=== PATIENT | female | born 1955 | race Caucasian/White ===

== ENCOUNTER → 2016-12-12 | Outpatient (CLI) | payer OTHER ==
[~2016-12-12] MED LIST: ASTN; ATOR-24 PO; FLUT0.15; KETO10TA PO; NAPR220T40 PO; OXYC-57 PO; PRLSR20 PO
[2016-12-12 13:17] LABS: BASO % 0.5 %; BASO ABS # 0.06 K/uL (0-0.2); COMPLETE YES; EOS % 1.6 %; HEMATOCRIT 42.8 % (37-47); IG% 0.3 %; LYMPH % 38.5 %; MEAN CELL VOLUME 88.1 fL (80-100); MEAN CORPUSCULAR HEMOGLOBIN 30.5 pg (25-34); MEAN CORPUSCULAR HGB CONC 34.6 g/dl (32-36); MEAN PLATELET VOLUME 11.3 fL (7.4-10.4); MONO % 6.5 %; NEUT % 52.6 %; PLATELET COUNT 269 K/uL (130-400); RED BLOOD COUNT 4.86 M/uL (4.2-5.4); WHITE BLOOD COUNT 11.17 K/uL (4.8-10.8)
[2016-12-12 15:11] LABS: BLOOD UREA NITROGEN 13 mg/dl (7-18); BUN/CREATININE RATIO 20.1 (10-20); CALCIUM 9.6 mg/dl (8.5-10.1); CARBON DIOXIDE 29 mmol/L (21-32); CHLORIDE 108 mmol/L (98-107); CREATININE 0.65 mg/dl (0.60-1.20); GLUCOSE 85 mg/dl (70-99); SODIUM 141 mmol/L (136-145)
== END | disposition home or self-care (01) ==
LOC: C.LAB 11:53
PROVIDERS: ATTEND Orthopaedic Surgery
DX: M75.02 Adhesive capsulitis of left shoulder (principal); Z01.812 Encounter for preprocedural laboratory examination; Z01.810 Encounter for preprocedural cardiovascular examination

== ENCOUNTER → 2017-01-02 | Day surgery (SDC) | payer OTHER ==
[2016-12-11 10:31] VITALS: Ht 152.4 cm; Wt 77.3 kg
[~2017-01-02] VITALS: Ht 152.4 cm; Wt 77.3 kg
[~2017-01-02] MED LIST changes: +ATROPINE SULFATE 0.1 MG/ML 5ML SYR IV PRN; +BUPIVACAINE/EPINEPHRINE 0.25% 1:200,000 30 ML VIAL ONE; +CEFAZOLIN 2000 MG/60 ML D5W IV SCH; +DEXAMETHASONE SOD INJ 4 MG/ML VIAL ONE; +EpHEDrine SULFATE INJ 50 MG/ML AMP IV PRN; +EpINEphrine INJ 1MG/ML AMP 1 MG/ML AMP ONE; +FENTANYL CITRATE INJ 50 MCG/1 ML 2 ML VIAL IV PRN; +FENTANYL CITRATE INJ 50 MCG/1 ML 2 ML VIAL ONE; +LACTATED RINGER'S 1000ML 1,000 ML IV SCH; +LIDOCAINE HCL 1% MPF 2 ML VIAL ONE; +LIDOCAINE HCL 2% 2 ML VIAL (20MG/ML) ONE; +METHYLPREDNISOLONE ACETATE 80 MG/ML VIAL ONE; +MIDAZOLAM HCL 1 MG/ML 2ML VIAL ONE; +ONDANSETRON INJ 2 MG/ML 2 ML VIAL IV PRN; +ONDANSETRON INJ 2 MG/ML 2 ML VIAL ONE; +OXYCODONE/ACETAMINOPHEN 5-325 TAB PO PRN; +PROPOFOL IV EMULSION 10 MG/ML 20 ML VIAL IV ONE; +ROPIVACAINE 0.5% 5 MG/ML 30 ML VIAL ONE; +SODIUM CHLORIDE 0.9% 1000ML 1,000 ML IV SCH
--- NOTE | 2017-01-02 08:16 | History & Physical Bridge - [place] ---
H&P Re-Evaluation Bridge Note: I have examined the patient, reviewed the History & Physical and in the interval since the performance of the History & Physical I have noted the following changes of clinical significance: No changes noted
--- NOTE | 2017-01-02 12:10 | Discharge Instructions-SurgCtr ---
Discharge Instructions Date of Service Jan 02, 2017. Visit Reason for Visit: Left Shoulder Adhesive Capsulitis, Pain Discharge Discharge Diagnosis / Problem: SAME ABOVE Discharge Goals Goal(s): Decrease discomfort, Improve function Medications Stopped Medications Name(s): Beth last dose aproxx 10 days ago Restart Stopped Medication(s): MAY RESTART WHEN FINISHED WITH THE TORADOL Activity Recommendations Activity Limitations: resume your previous activity Lifting Limitations: gradually increase as tolerated Exercise/Sports Limitations: gradually increase as tolerated Shower/Bathe: tomorrow Anesthesia . Post Anesthesia Instructions: If you have had General Anesthesia or IV Sedation: * Do not drive today. * Resume driving when surgeon permits. * Do not make important decisions or sign legal documents today. * Call surgeon for: 1. Temperature elevations greater than 101 degrees F. 2. Uncontrollable pain. 3. Excessive bleeding. 4. Persistent nausea and vomiting. 5. Medication intolerance (nausea, vomiting or rash). * For nausea and vomiting use only clear liquids such as: tea, soda, bouillon until nausea subsides, then gradually increase diet as tolerated. * If you have any concerns or questions, call your surgeon's office. If physician is unavailable and it is an emergency, call 911 or go to the nearest emergency room. . Instructions / Follow-Up Instructions / Follow-Up MEDICATIONS: * Resume previous medications unless instructed otherwise by your surgeon. * Always take pain medication on a full stomach or with food to avoid upset stomach. * Do not drink alcohol or drive while taking narcotics. * Ibuprofen or Tylenol may be taken if narcotic not needed. SPECIAL CARE INSTRUCTIONS: __ None _X_ Keep extremity elevated and iced x 48 hours; apply ice 20-30 minutes 8-10 times/day. May remove at night. _X_ Sling (REMOVE AFTER 24 HOURS) __24 hrs/day __ Remove at night __ Shoulder Immobilizer __ 24 hrs/day __ Remove at night _X_ Dressing __ Maintain until seen in office, may shower with plastic over site _X_ Remove dressings in 24-48 hours and then may shower _X_ Cover incisions with band-aids after showering __ Do not remove steri-strips Call physician if chills or temperature rises above 102 degrees or pain unrelieved by prescribed pain medications at . . Diet Recommendations Home Diet: no limitations Procedures Procedures Performed: Left Shoulder Arthroscopic Capsular Release, Extensive Debridement, Biceps Tenotomy Pending Studies Studies pending at discharge: no Work Instructions Return To Work: 3 days (OR WHEN PAIN IS CONTROLLED ) Medical Emergencies . Who to Call and When: Medical Emergencies: If at any time you feel your situation is an emergency, please call 911 immediately. . Non-Emergent Contact Non-Emergency issues call your: Primary Care Provider Call Non-Emergent contact if: you have a fever, temperature is above 101.5 . . "Provider Documentation" section prepared by Tavo Anne. .
--- NOTE | 2017-01-02 12:31 | OPERATIVE REPORT ---
DATE OF OPERATION: 01/02/2017 PREOPERATIVE DIAGNOSIS: Adhesive capsulitis of the left shoulder with a paralabral cyst. POSTOPERATIVE DIAGNOSIS: Adhesive capsulitis of the left shoulder with a paralabral cyst and biceps tendinopathy. PROCEDURE: Diagnostic left shoulder arthroscopy with extensive debridement, lysis of adhesions, biceps tenotomy and manipulation under anesthesia. SURGEON: Dave Manning DO. SUPERVISOR NEWSPAPER DELIVERIES: Evin Anne PA-C, whose assistance was necessary for positioning the arm and helping with instrumentation. ANESTHESIA: General with a left interscalene nerve block. COMPLICATIONS: None. CONDITION: Stable to PACU. INDICATIONS: Mirna is a pleasant 61-year-old female who presented to my office with increasing left shoulder pain and tightness. MRI did show a large paralabral cyst, but she did not have any weakness with external rotation. After failing conservative treatment, she elected to undergo a capsular release with decompression of the cyst. On 01/02/2017, she arrived at [facility] for the above procedure. She was seen in the preoperative holding area and the operative extremity was identified and signed. She was given a preoperative antibiotic and a left interscalene nerve block. She was taken back to the operating room, laid on the table in supine position and put under general anesthesia. She was then put into the beach chair position. The left shoulder was prepped and draped in sterile fashion. Time-out was done and the patient and operative extremity was properly identified. On preoperative physical examination, she had about 70 degrees of abduction and 30 degrees of external rotation. A gentle manipulation was done under anesthesia to facilitate insertion of the arthroscope. The scope was then placed in the posterior portal. Diagnostic arthroscopy showed some grade 2 and 3 chondral changes to the humeral head. The glenoid cartilage was intact. There was significant fraying and tearing of the superior and anterior labrum. There was a lot of redness and inflammation of the middle and inferior glenohumeral ligaments. The rotator interval did not look too bad. The biceps tendon was subluxated medially with some fraying. There was a little fraying of the undersurface of the rotator cuff, but no evidence of full thickness tears. An anterior portal was made. A shaver was used to start an extensive debridement. The labrum was debrided back. The undersurface of the rotator cuff was debrided as well. An ablator was then used to do a lysis of adhesions, the rotator interval was completely opened up from the biceps florian mechanism back to the undersurface of the coracoid. The middle and anterior inferior glenohumeral ligaments were then completely released. Care was taken not to disrupt the subscapularis or the axillary nerve. A shaver was used to debride back loose soft tissues. This was all debrided back to stable margins. The scope was then placed in the anterior portal. A shaver was used to detach the superior capsule. A blunt probe was then used to decompress the cyst at the spinoglenoid notch. I did not feel any doing a further dissection in that area. Final diagnostic arthroscopy showed no additional pathology. A spinal needle was placed in the joint. Arthroscopic instruments removed. The manipulation was done under anesthesia and I was able to get full range of motion of the shoulder. The shoulder was then injected with 80 mg of Depo-Medrol and 5 mL of Marcaine. The portal sites were closed with 3-0 nylon. She was then placed in a soft dressing and regular arm sling. She was then extubated, transferred to a [facility] and taken to the postanesthesia care unit in stable condition. She tolerated the procedure well. I attest to the content of the Intraoperative Record and any orders documented therein. Any exception s are noted below.
--- NOTE | 2017-01-02 12:52 | Anesthesia Progress Nt - [facility] ---
Anesthesia Post Op Note Date & Time Jan 02, 2017 at 12:51 Vital Signs Pain Intensity: 0 Vital Signs Past 12 Hours Date Time Temp Pulse Resp B/P (MAP) Pulse Ox O2 Delivery O2 Flow Rate FiO2 01/02/17 12:13 36.4 93 20 161/77 96 Mask 6 01/02/17 11:14 63 01/02/17 11:14 62 13 97 01/02/17 11:11 157/68 01/02/17 11:09 64 29 99 01/02/17 11:09 62 01/02/17 11:06 141/84 01/02/17 11:04 63 25 99 01/02/17 11:04 62 01/02/17 11:01 150/70 01/02/17 10:59 59 20 98 01/02/17 10:59 59 01/02/17 10:56 151/87 01/02/17 10:54 65 01/02/17 10:54 64 20 99 01/02/17 10:51 157/76 01/02/17 10:49 57 01/02/17 10:49 58 20 98 01/02/17 10:46 124/65 01/02/17 10:44 64 01/02/17 10:44 63 18 98 01/02/17 10:41 154/72 01/02/17 10:39 53 19 158/75 99 01/02/17 10:39 54 01/02/17 10:34 58 0 01/02/17 10:29 55 01/02/17 10:29 55 0 95 01/02/17 08:25 37.0 62 18 178/89 (118) 95 Room Air Notes Mental Status: alert / awake / arousable, participated in evaluation Pt Amnestic to Procedure: Yes Nausea / Vomiting: adequately controlled Pain: adequately controlled Airway Patency, RR, SpO2: stable & adequate BP & HR: stable & adequate Hydration State: stable & adequate Anesthetic Complications: no major complications apparent
[2017-01-02 13:08] VITALS: TEMP 36.8
[2017-01-02 13:47] VITALS: BP 146/79; PULSE 80; O2SAT 95
--- NOTE | 2017-01-02 15:24 | [facility] Post Operative Brief Note ---
Immediate Operative Summary Operative Date Jan 02, 2017. Pre-Operative Diagnosis Left Shoulder Adhesive Capsulitis Post-Operative Diagnosis Same Procedure(s) Performed Left Shoulder Arthroscopic Capsular Release, Extensive Debridement, Biceps Tenotomy Surgeon Dr. Manning Insurance Plan Specialist Surgeon(s) Rocael Anne PA-C Estimated Blood Loss 5ML Findings as above Specimens None Complication(s) None Disposition Recovery Room / PACU
== END | disposition home or self-care (01) ==
LOC: X.SURG 07:55
PROVIDERS: ATTEND Orthopaedic Surgery
DX: M75.02 Adhesive capsulitis of left shoulder (principal); M25.812 Other specified joint disorders, left shoulder; I10 Essential (primary) hypertension; E66.9 Obesity, unspecified

== ENCOUNTER → 2017-10-22 | Outpatient (CLI) | payer OTHER ==
[~2017-10-22] MED LIST changes: -ATROPINE SULFATE 0.1 MG/ML 5ML SYR IV PRN; -BUPIVACAINE/EPINEPHRINE 0.25% 1:200,000 30 ML VIAL ONE; -CEFAZOLIN 2000 MG/60 ML D5W IV SCH; -DEXAMETHASONE SOD INJ 4 MG/ML VIAL ONE; -EpHEDrine SULFATE INJ 50 MG/ML AMP IV PRN; -EpINEphrine INJ 1MG/ML AMP 1 MG/ML AMP ONE; -FENTANYL CITRATE INJ 50 MCG/1 ML 2 ML VIAL IV PRN; -FENTANYL CITRATE INJ 50 MCG/1 ML 2 ML VIAL ONE; -KETO10TA PO; -LACTATED RINGER'S 1000ML 1,000 ML IV SCH; -LIDOCAINE HCL 1% MPF 2 ML VIAL ONE; -LIDOCAINE HCL 2% 2 ML VIAL (20MG/ML) ONE; -METHYLPREDNISOLONE ACETATE 80 MG/ML VIAL ONE; -MIDAZOLAM HCL 1 MG/ML 2ML VIAL ONE; -ONDANSETRON INJ 2 MG/ML 2 ML VIAL IV PRN; -ONDANSETRON INJ 2 MG/ML 2 ML VIAL ONE; -OXYC-57 PO; -OXYCODONE/ACETAMINOPHEN 5-325 TAB PO PRN; -PROPOFOL IV EMULSION 10 MG/ML 20 ML VIAL IV ONE; -ROPIVACAINE 0.5% 5 MG/ML 30 ML VIAL ONE; -SODIUM CHLORIDE 0.9% 1000ML 1,000 ML IV SCH
== END | disposition home or self-care (01) ==
LOC: C.PAPS 18:03
PROVIDERS: ATTEND Obstetrics & Gynecology
DX: Z12.4 Encounter for screening for malignant neoplasm of cervix (principal)

== ENCOUNTER 2022-06-26 08:41 | Observation (INO) ==
--- NOTE | 2022-05-23 14:35 | PAT Medication Instructions ---
Medication Instructions Date of Service May 23, 2022 Home Medications amlodipine 5 mg tablet 5 mg PO QAM calcium carbonate 600 mg calcium (1,500 mg) tablet (Calcium) 600 mg PO QAM cholecalciferol (vitamin D3) 50 mcg (2,000 unit) tablet (Vitamin D3) 50 mcg PO QAM omeprazole 20 mg capsule,delayed release 20 mg PO QAM rosuvastatin 10 mg tablet 10 mg PO HS DO NOT take the morning of surgery calcium carbonate 600 mg calcium (1,500 mg) tablet (Calcium) 600 mg PO QAM cholecalciferol (vitamin D3) 50 mcg (2,000 unit) tablet (Vitamin D3) 50 mcg PO QAM Take morning of surgery With a small sip of water, OTHERWISE NOTHING TO EAT OR DRINK AFTER MIDNIGHT: amlodipine 5 mg tablet 5 mg PO QAM omeprazole 20 mg capsule,delayed release 20 mg PO QAM Take evening before surgery rosuvastatin 10 mg tablet 10 mg PO HS Other Notes If you have any questions please call us at [phone] or [phone] or [phone] or [phone]
--- NOTE | 2022-05-29 12:13 | Anesthesiology Consultation ---
Date of Service May 29, 2022 Assessment & Plan (1) Encounter for pre-operative examination: Chart Review Chart Review: Acceptable Risk for Surgery and Patient seen in Pre Admission Testing - Please fax preop results to PCP for continuity of care per patient request Pt currently scheduled as 23 hours observation. If surgeon decides to change patient to Same Day Joint, patient would be acceptable risk for TKA, pending patient is motivated, has good support and surgeon's office completes Same Day Joint Program preop requirements. Per PAT appt on 05/29/22, patient denies any recent travel or large group activities. Pt is vaccinated for Covid. Will leave to surgeon's discretion if preop Covid testing needed. Educated on importance of using Covid precautions one week prior to surgery Teaching & Discussion Pre-Anesthesia Teaching/Discussion Notes: Instructed NPO after midnight before surgery,except medications with 15 cc of water. Medication instructions provided according to the PAT guidelines. History Surgery Operation Date: 06/26/22 10:30 Proposed Procedures p Left Total Knee Arthroplasty - Sonu Mora DO Height/Weight Height: 5 ft Weight: 82.1 kg Allergies Allergy/AdvReac Type Severity Reaction Status Date / Time No Known Allergies Allergy Verified 05/23/22 12:24 Medications Home Medications Medication Instructions Recorded Confirmed Last Taken amlodipine 5 mg tablet 5 mg PO QAM 05/23/22 05/23/22 Unknown calcium carbonate 600 mg calcium 600 mg PO QAM 05/23/22 05/23/22 Unknown (1,500 mg) tablet (Calcium) cholecalciferol (vitamin D3) 50 50 mcg PO QAM 05/23/22 05/23/22 Unknown mcg (2,000 unit) tablet (Vitamin D3) omeprazole 20 mg capsule,delayed 20 mg PO QAM 05/23/22 05/23/22 Unknown release rosuvastatin 10 mg tablet 10 mg PO HS 05/23/22 05/23/22 Unknown Past Medical History Medical History (Updated 05/29/22 @ 14:42 by Donna Montoya PA-C) GERD (gastroesophageal reflux disease) Well controlled and stable with meds History of COVID-19 x2 > most recently 03/2021 - symptoms resolved History of hemorrhage (1976) Did have blood transfusion Hx of hypercalcemia Reason for partial parathyroidectomy 05/2021 - no issues currently/stable Hyperlipidemia Hypertension Kidney stones Hx - no surgery needed No current issues Osteoarthritis Prediabetes Presumed- Hgb A1C 6.0 per 05/29/22 preop labs Exercise / Class Metabolic Activity III < 4 Walking/Shop/Light housework (one flight of stair - no chest pain, mild SOB ) Past Family History Family History Grandfather (Paternal) FHx: colon cancer Other No family history of adverse response to anesthesia Past Surgical History Surgical History H/O arthroscopy of shoulder History of colonoscopy History of dilatation and curettage History of esophagogastroduodenoscopy (EGD) Hx of parathyroidectomy partial Past Anesthesia History No Hx of Anesthesia Complications (with exception to slow to wake with parathyroidectomy - just groggy- no reintubation or ICU stay- did have associated PONV) and No Family Hx of Anesthesia Complications History of PONV History of PONV (one episode with parathyroidectomy ) and Hx of Motion Sickness Social History Smoking Status: Never smoker Do You Dip or Chew Tobacco: No Hx Alcohol Use: No Hx Substance Use: No substance use type: does not use Review of Systems Patient denies chest pain, shortness of breath at rest, cough, wheezing, palpitations. No hx of seizures, stroke, NH, apnea/snoring. No hx of blood clots. Physical Exam Vital Signs VITALS BP 139/83 P 76 TEMP 98.3 SP02 96% RESP 16 Constitutional no acute distress ENMT Mouth: no TMJ clicking Thyromental Distance: < 3.5 Finger Breadths (3.0) Mallampati Class: II Neck + limited neck extension (mild) Respiratory normal respiratory effort; no respiratory distress Auscultation: lungs clear to auscultation bilaterally; no wheezes Cardiovascular Rate/Rhythm: regular rate and regular rhythm Heart Sounds: no murmur Vessels: no carotid bruit Musculoskeletal Spine: no pain with cervical ROM Extremities: extremities normal to inspection Psychiatric Orientation: alert Lab Results Anesthesia Preop Results Results Anesthesia Widget: WBC 10.79 K/ul (4.8-10.8) 05/29/22 Hgb 14.8 g/dl (12.0-16.0) 05/29/22 Hct 43.3 % (37.0-47.0) 05/29/22 Plt 240 K/uL (130-400) 05/29/22 Na 141 mmol/L (136-145) 05/29/22 K 3.8 mmol/L (3.5-5.1) 05/29/22 Cl 105 mmol/L (98-107) 05/29/22 CO2 29 mmol/L (21-32) 05/29/22 BUN 12 mg/dl (6-23) 05/29/22 Creat 0.69 mg/dl (0.6-1.2) 05/29/22 Glucose Level 123 mg/dl (70-99(Fasting)) H 05/29/22 PT 10.5 Seconds (9.0-12.0) 05/29/22 PTT 27.5 Seconds (21.0-31.0) 05/29/22 INR 1.0 (0.9-1.1) 05/29/22 HA1c 6.0 % (4.5-5.6) H 05/29/22 Urine Color Yellow 05/29/22 Urine Appearance Clear (Clear) 05/29/22 Urine pH 6.5 (4.5-7.5) 05/29/22 Urine Specific [place] 1.017 (1.000-1.030) 05/29/22 Urine Protein Negative (Negative) 05/29/22 Urine Glucose (UA) Negative (Negative) 05/29/22 Urine Ketones Negative (Negative) 05/29/22 Urine Blood Negative (Negative) 05/29/22 Urine Nitrite Negative (Negative) 05/29/22 Urine Bilirubin Negative (Negative) 05/29/22 Urine Urobilinogen Negative (Negative) 05/29/22 Urine Leukocyte Esterase 1+ (Negative) H 05/29/22 Urine WBC (Auto) 5-10 /hpf (0-5) H 05/29/22 Urine RBC (Auto) 5-10 /hpf (0-4) H 05/29/22 Urine Hyaline Casts (Auto) 1-5 /lpf (0-5) 05/29/22 Urine Epithelial Cells (Auto) >30 /lpf (0-5) H 05/29/22 Urine Bacteria (Auto) Negative (Negative) 05/29/22 Blood Type O Positive 05/29/22 Antibody Screen NEGATIVE 05/29/22 Testing Electrocardiogram Date: 05/29/22 Unusual P axis and short MT, probably junctional rhythm. Nonspecific ST and T wave abnormality When compared to EKG from Dec 12, 2016- junctional rhythm has replaced sinus rhythm. (Discussed with Dr. Alcantara- patient can proceed as scheduled) Chest X-Ray Date: 05/29/22 Findings: + NAD Stress Test Date: 05/26/18 Type: exercise (ECHO) Resting EF: 55 to 59% Stress echo was negative for inducible ischemia No EKG or wall motion abnormalities to suggest ischemia Poor exercise tolerance demonstrated. Adequate cardiovascular stress test as patient obtain 85% of MPHR. 4.4 METS achieved No arrhythmias were noted. Normal BP and heart rate response to exercise Baseline echo Doppler study is unremarkable. Bubble study done to assess for intracardiac shuntnegative for right to left intracardiac shunt. Mild TR COVID-19 Risk Screen Screening Information COVID-19 Screen Date: 05/29/22 Exposure 21 Days Family/Household +COVID Last 21 Days: No Exposure 10 Days Any COVID Exposure Last 10 Days: No Symptoms Last 10 Days Experienced COVID Sx Last 10 Days: No + COVID 0-90 Days COVID + in Last 0-90 Days: No Risk Plan COVID Risk Plan: No Risk Identified Patient Education COVID Preop Screening Education Complete: Yes
--- NOTE | 2022-06-07 13:16 | History & Physical Report ---
Date of Service June 07, 2022 date of surgery: 06/26/22 Procedure: Left Total Knee Arthroplasty Surgeon: Sonu Mora Assessment & Plan (1) Arthritis of knee, left: Plan: Presents for evaluation of continued left knee pain, she underwent viscosupplementation injection a few months ago without any relief. Her x-rays were reviewed which show advanced degenerative changes tricompartmentally to her left knee. We discussed treatment options she is elected proceed with surgical intervention. Plan will be a [facility] patient matched left total knee arthroplasty at her convenience. Placed on aspirin 81 mg twice a day for 1 month postop patient otherwise has no other questions or concerns. Has elected to use home health physical therapy The risks and benefits have been discussed including, but not limited to, risk of infection, nerve injury, stiffness, loss of motion, failure to improve, etc. Reasonable outcomes and options of treatment were discussed. An explanation of appropriate alternatives to the procedure that may be advantageous were discu ssed and their risks and benefits, as well as the risks and benefits of not proceeding with treatment. I offered to answer any additional inquiries concerning the treatment involved. All the patient's questions were answered. The patient is agreeable, understanding of the treatment plan and alternatives, and wishes to proceed with the treatment plan. History of Present Illness Chief Complaint: left knee pain Primary Care Provider: Gogo Krishna PA-C Mirna is a pleasant 66-year-old female who presented for preop evaluation prior to left total knee replacement. She has been having pain in his knee for many years now which is gradually worsened and is now affecting her daily activities including walking standing using stairs. She tried oral anti- inflammatories and Tylenol without relief. She had previous viscosupplemen tation injections as well with minimal relief. Rates her current pain as a 5 out of 10. She has complaints of pain stiffness and weakness in her left knee. This point time is failed conservative measures and would like to proceed with a left total knee replacement Allergies Allergy/AdvReac Type Severity Reaction Status Date / Time No Known Allergies Allergy Verified 05/23/22 12:24 Home Medications Medication Instructions Recorded Confirmed Type amlodipine 5 mg tablet 5 mg PO QAM 05/23/22 05/23/22 History calcium carbonate 600 mg calcium 600 mg PO QAM 05/23/22 05/23/22 History (1,500 mg) tablet (Calcium) cholecalciferol (vitamin D3) 50 50 mcg PO QAM 05/23/22 05/23/22 History mcg (2,000 unit) tablet (Vitamin D3) omeprazole 20 mg capsule,delayed 20 mg PO QAM 05/23/22 05/23/22 History release rosuvastatin 10 mg tablet 10 mg PO HS 05/23/22 05/23/22 History Past Med/Surg History Medical History GERD (gastroesophageal reflux disease) Well controlled and stable with meds History of COVID-19 x2 > most recently 03/2021 - symptoms resolved History of hemorrhage (1976) Did have blood transfusion Hx of hypercalcemia Reason for partial parathyroidectomy 05/2021 - no issues currently/stable Hyperlipidemia Hypertension Kidney stones Hx - no surgery needed No current issues Osteoarthritis Prediabetes Presumed- Hgb A1C 6.0 per 05/29/22 preop labs Surgical History H/O arthroscopy of shoulder History of colonoscopy History of dilatation and curettage History of esophagogastroduodenoscopy (EGD) Hx of parathyroidectomy partial Family History Grandfather (Paternal) FHx: colon cancer Other No family history of adverse response to anesthesia Social History Smoking Status: Never smoker Second Hand Exposure: No; Hx Alcohol Use: No Hx Substance Use: No Preferred Language: Estonian Communication Ability: Effective Aircraft Landing Gear Inspector Required: No Beliefs That Will Affect Care: None Current Living Situation: Spouse Feels Safe at Home: Yes Assistive Devices: None Review of Systems Review of Systems: All systems reviewed & are unremarkable except as noted in HPI & below Constitutional: no fever, no chills and no sweats Respiratory: no cough and no dyspnea Cardiovascular: no chest pain, no dyspnea and no orthopnea Gastrointestinal: no abdominal pain, no nausea and no vomiting Musculoskeletal: as per Subjective / HPI Physical Exam Physical Exam: HT: 5ft WT: 82.1kg Constitutional: WD/WN, vitals as above no acute distress Respiratory: normal respiratory effort, lungs clear to auscultation no respiratory distress, no labored breathing and does not use accessory muscles Cardiovascular: RRR, no murmur, no edema Gastrointestinal (Abdomen): normal bowel sounds, soft, nontender, no hepatosplenomegaly Musculoskeletal: Knee: + knee abnormal to inspection (Left Knee: ), + effusion (+1 effusion), + limited ROM of knee (ROM 0/3/110), + knee ROM with crepitation, + joint line tenderness (medial joint line) and + Randa's sign positive; no deformity, no skin erythema, no ecchymosis, no valgus laxity, no varus laxity, anterior drawer test negative, Neyda's sign negative and pivot shift test negative Results & Data Results & Data ([facility]) Diagnostic Findings Left Knee X-ray: left knee series confirm advanced degenerative changes to the left knee, greatest medial compartments and patellofemoral joint, showing joint space narrowing, osteophyte formation and subchondral sclerosis. no acute bony pathology noted.
[~2022-06-26 08:41] MED LIST changes: +ACETAMINOPHEN 500 MG TAB PO SCH; -ASTN; -ATOR-24 PO; +BUPIVACAINE 0.5 % 5 MG/1 ML PF 10ML VIAL ONE; +CeleBREX 200 MG CAP PO SCH; +EPINEPHrine INJ 1 MG/ML AMP ONE; +FAMOTIDINE 20 MG TAB PO SCH; -FLUT0.15; +GABAPENTIN 300 MG CAP PO SCH; +LR 500ML BOLUS, THEN 15ML/HR IV SCH; +METOCLOPRAMIDE HCL 10 MG TABLET PO SCH; -NAPR220T40 PO; -PRLSR20 PO; +ROPIVACAINE 0.5% 5 MG/ML 30 ML VIAL ONE; +ROPIVACAINE 0.5% HCL/PF 150 MG, BUPIVACAINE 0.75% MPF 20 ML, EPINEPHrine 30MG/30ML (OR ... INSTIL SCH; +TRANEXAMIC ACID 1,000 MG **IV Intra-op IV SCH; +TRANEXAMIC ACID 1,000 MG **IV Pre-op IV SCH; +ceFAZolin 2000MG 2,000 MG/15 ML SYR IV SCH; +dexAMETHasone 4 MG TAB PO SCH
--- NOTE | 2022-06-26 09:31 | History & Physical Bridge Note ---
Date of Service June 26, 2022 History & Physical Bridge Note I have examined the patient, reviewed the History & Physical and in the interval since the performance of the History & Physical I have noted the following changes of clinical significance: no changes noted
[2022-06-26] MEDS ORDERED: ORTHO JOINT ANESTHETIC ONE (09:44)
[2022-06-26] MEDS ORDERED: ePHEDrine sulfate 50 MG/ML AMP IV PRN (09:48)
[2022-06-26] MEDS ORDERED: ATROPINE SULFATE 0.1 MG/ML 10ML SYR IV PRN (09:48)
[2022-06-26] MEDS ORDERED: LIDOCAINE 2% MPF LOCAL 5 ML VIAL ONE (10:04)
[2022-06-26] MEDS ORDERED: ONDANSETRON INJ 2 MG/ML 2 ML VIAL ONE (10:04)
[2022-06-26] MEDS ORDERED: ePHEDrine sulfate 50 MG/ML AMP ONE (10:04)
[2022-06-26] MEDS ORDERED: MIDAZOLAM HCL 1 MG/ML 2ML VIAL ONE (10:04)
[2022-06-26] MEDS ORDERED: DEXAMETHASONE SOD INJ 4 MG/ML VIAL ONE (10:04)
[2022-06-26] MEDS ORDERED: PROPOFOL IV EMULSION 10 MG/ML 20 ML VIAL IV ONE ×3 (10:04→11:15)
--- NOTE | 2022-06-26 11:08 | Operative Report ---
Post Operative Report Pre & Post Diagnosis Operation Date: 06/26/22 11:10 Pre-Op Diagnosis: Arthritis of knee, left Post-Op Diagnosis: Arthritis of knee, left I identified the patient and participated in the time-out.: Yes Procedure Operation Date: 06/26/22 11:10 Actual Procedures p Left Total Knee Arthroplasty(Left) utilizing [employer] persona patient matched total knee arthroplasty size 7 narrow femur tibia C. Poly 11 medial constrained patella 28 oval- Sonu Mora DO Surgeon Sonu Mora DO Extra Hand PATRICIA Duarte Estimated Blood Loss 5 Findings Consistent with Post-Op Diagnosis Patient presents with severe end-stage tricompartmental DJD left knee with varus alignment flexion contracture 10 degrees eburnated [id number] marginal osteophyte subchondral cystic changes Specimens Bone and cartilage Drains Medium bore Hemovac Anesthesia Type MAC Spinal Regional Complications none Disposition Accompanied Patient To Recovery: No Disposition: Recovery Room Indications Patient presents with severe end-stage DJD failed attempted conservative management occluding physical therapy anti-inflammatories relative rest activity modification corticosteroid injection viscosupplementation the above intraoperative findings were noted Description of Procedure After proper prepping and draping of the left lower extremity anterior midline incision was made over the region of the extensor extensor mechanism after meticulous hemostasis was obtained and maintained in subcutaneous tissues a medial parapatellar incision was made The patella was subluxed lateralward the medial lateral gutter were cleaned from any hypertrophic synovitis and scar tissue of the distal femoral block was placed and the distal femoral osteotomy cut was made subsequently the chamfers anterior and posterior osteotomy cuts were made utilizing the 4-in-1 block the tibia was subsequently subluxed anteriorward medial and ateral meniscal remnants were excised in their entirety remnants of the anterior and posterior cruciate ligaments were excised in their entirety excellent exposure of the proximal tibia was obtained the tibial osteotomy guide was placed on the proximal tibial osteotomy cut was made once again the knee was irrigated with copious amounts of sterile saline solution the patella was subsequently everted lateralward thickened scar tissue around the patella was removed the patella was subsequently cut utilizing a freehand technique and was drilled prepared for final preparation and placement of patella socially flexion-extension gaps were checked and the equal and symmetric trials were placed to the appropriate femoral and tibial trials with poly-spacer being placed for equal flexion and extension gaps and full range of motion including extension to 0 and flexion to 140 the trial components after having been taken to recovery range of motion was subsequently removed meticulous hemostasis was obtained and maintained subsequently a knee block injection of joint cocktail including ropivacaine 0.5% 150 mg. Bupivacaine 0.5% epinephrine 1-200,030 mL's toradol 30 mg dexamethasone 4 mg ketamine 10 mg clonidine 100 micrograms normal saline solution 30 mg was infiltrated into the soft tissues of the posterior knee medial lateral gutters and periosteal synovium special attention was paid to protect neurovascular structures at all times subsequently trial components having been removed the knee was irrigated with sterile saline solution. debris was removed the proximal tibia was subsequently prepared and was made ready for the placement of the tibial component tibial component was also cemented and tamped into position the femoral component was subsequently p laced and cemented in the position the patellar component was subsequently cemented in position because hemostasis once again obtained and maintained wound having been thoroughly irrigated with debridement and debridement lavage was performed as well as a medial parapatellar incision closed with #1 Vicryl in interrupted fashion subcutaneous was closed with #2 Vicryl skin was closed with skin clips. PA-C was necessary for prepping and drapping as well as wound closure of deep fascia Sub cutaneous tissue and skin and was necessary for the case. A sterile compressive dressing was placed patient was taken to recovery in stable condition of report dictated by Morgan I attest to the content of the Intraoperative Record and any orders documented therein. Any exceptions are noted below.Due to the complex nature of the procedure, the entire surgery was performed with the operational assistance of PATRICIA Duarte. The audiology assistant, under direct supervision, was involved in the actual performance of all aspects of the surgical procedure including hemostasis, tissue retraction and incision, instrument management, patient positioning, and wound closure. I attest to the content of the Intraoperative Record and any orders documented therein. Any exceptions are noted below.
--- NOTE | 2022-06-26 12:30 | XRay Report ---
TWO VIEWS LEFT KNEE CLINICAL HISTORY: Postoperative examination. FINDINGS: AP and crosstable lateral portable views of the left knee are obtained. A left knee arthrop lasty is in near anatomic alignment. There has been undersurface remodeling of the patella. No acute fracture is seen. There are expected postoperative changes around the knee including a surgical drain , soft tissue edema, and subcutaneous gas. IMPRESSION: Expected postoperative changes status post left knee arthroplasty. No acute fracture is s een. ACT 112: Negative or not required by law. Electronically signed by: Quincy Wilson M.D. 06/26/2022 12:29 PM
[2022-06-26] MEDS ORDERED: diphenhydrAMINE Capsule 25 MG CAP PO PRN (12:33)
[2022-06-26] MEDS ORDERED: NALOXONE HCL 0.4 MG/1 ML VIAL/CARP IV PRN (12:33)
[2022-06-26] MEDS ORDERED: MAGNESIUM HYDROXIDE SUSP 30 ML UDC PO PRN (12:33)
[2022-06-26] MEDS ORDERED: HYDROmorphone INJ 1 MG/ML SYRINGE IV PRN (12:33)
[2022-06-26] MEDS ORDERED: ONDANSETRON INJ 2 MG/ML 2 ML VIAL IV PRN (12:33)
[2022-06-26] MEDS ORDERED: bisacodyL 10 MG SUPP PR PRN (12:33)
[2022-06-26] MEDS ORDERED: METOCLOPRAMIDE HCL INJ 5 MG/ML 2 ML VIAL IV PRN (12:33)
[2022-06-26] MEDS ORDERED: oxyCODONE HCL IR 5 MG TAB (IMMEDIATE RELEASE) PO PRN (12:33)
--- NOTE | 2022-06-26 12:41 | Anesthesiology Progress Note ---
Date of Service June 26, 2022 Anesthesia Post Procedure Vital Signs Vital Signs: Temp Pulse Pulse Resp BP Pulse Ox O2 Del Method 06/26/22 12:15 36.4 C L 77 18 132/51 L 96 Nasal Cannula 06/26/22 12:05 76 16 118/63 94 Nasal Cannula 06/26/22 11:55 70 18 117/54 L 95 Nasal Cannula 06/26/22 11:48 36.4 C L 74 16 113/54 L 95 Room Air 06/26/22 09:12 36.9 C 73 18 173/88 H 94 Room Air O2 Flow Rate 06/26/22 12:15 2 06/26/22 12:05 2 06/26/22 11:55 2 06/26/22 11:48 06/26/22 09:12 Pain Intensity Left Knee: Pain Intensity: 6 Transfer of Care Handoff Completed per policy Notes Mental Status: alert / awake / arousable Patient Amnestic to Procedure: Yes Nausea / Vomiting: adequately controlled Pain: adequately controlled Airway Patency, RR, SpO2: stable & adequate BP & HR: stable & adequate Hydration State: stable & adequate Neuraxial Anesthesia: was administered and sensory block is resolving Anesthetic Complications: no major complications apparent
[2022-06-26] MEDS: SODIUM CHLORIDE 0.9% 1000ML 1,000 ML IV SCH ×2 (12:42→22:39)
[2022-06-26] MEDS: ACETAMINOPHEN 500 MG TAB PO SCH ×2 (13:48→20:12)
[2022-06-26] MEDS: KETOROLAC TROMETHAMINE 15 MG/ML VIAL IV SCH ×2 (13:50→18:09)
[2022-06-26] MEDS: ceFAZolin 2000MG 2,000 MG/15 ML SYR IV SCH (18:04)
[2022-06-26] MEDS: ASPIRIN 81 MG ECTAB PO SCH (20:11)
[2022-06-26] MEDS: DOCUSATE SODIUM 100 MG CAP PO SCH (20:11)
[2022-06-26] MEDS ORDERED: ROSUVASTATIN CALCIUM 10 MG TAB PO SCH (21:00)
[2022-06-26] MEDS ORDERED: SENNA 8.6 MG TAB PO SCH (21:00)
[2022-06-27] MEDS: ceFAZolin 2000MG 2,000 MG/15 ML SYR IV SCH (01:32)
[2022-06-27] MEDS: KETOROLAC TROMETHAMINE 15 MG/ML VIAL IV SCH ×2 (01:32→05:49)
[2022-06-27] MEDS: ACETAMINOPHEN 500 MG TAB PO SCH (05:49)
[2022-06-27 06:11] LABS: Hemoglobin 12.5 g/dl (12.0-16.0); Mean Corpuscular Hemoglobin 29.8 pg (25.0-34.0); Mean Corpuscular Hgb Conc 33.8 g/dL (32.0-36.0); Mean Corpuscular Volume 88.1 fL (80.0-100.0); Mean Platelet Volume 11.5 fL (9.4-12.4); Platelet Count 231 K/uL (130-400); RDW Coefficient of Variation 13.2 % (11.5-14.5); RDW Standard Deviation 42.5 fL (36.4-46.3)
[2022-06-27 06:28] LABS: BUN Creatinine Ratio 18.8 (10-20); Calcium 8.7 mg/dl (8.6-10.3); Creatinine Clr Calc Pharmacy 78.4 ml/min; Est GFR (African American) 106.3 ml/min; Est GFR (Non-African American) 91.7 ml/min; Potassium 3.7 mmol/L (3.5-5.1)
--- NOTE | 2022-06-27 07:51 | Orthopedic Progress Note ---
Date of Service June 27, 2022 Assessment & Plan (1) Arthritis of knee, left: Plan: Postop day #1 left total knee arthroplasty -PT/OT -AM labs: Hemoglobin at 12.5. Leukocytosis with a white count of 16 likely reactive due to surgical stress, perioperative steroids. Patient is asymptomatic. -Pain management as written -DVT prophylaxis: SCDs, teds, aspirin 81 mg twice daily -Discharge planning: Plan on discharge home with home health. Plan on discharge today as long as therapy goes well. Admission and Anticipated Discharge Date Admission Date: June 26, 2022 Subjective Patient is postop day #1 left total knee arthroplasty. She is doing well this morning. She is minimal pain. Her leg was buckling yesterday on the bathroom but this is improved. No other complaints. Denies chest pain, shortness of breath, nausea/vomiting/diarrhea, lightheadedness or dizziness. Review of Systems Review of Systems: All systems reviewed & are unremarkable except as noted in Subjective Physical Exam Physical Exam: Left knee: Dressing is clean, dry, intact. Toes are mobile with good dorsiflexion. No calf tenderness. Able to straight leg raise. Distally neurovascular status and sensation intact. Results & Data Vital Signs (Past 12 Hours) Vital Signs Temp Pulse Resp BP Pulse Ox O2 Del Method 06/27/22 04:58 36.8 C 65 16 134/69 95 Room Air 06/26/22 22:22 37 C 67 16 124/61 94 Room Air 06/26/22 19:56 36.9 C 63 16 104/60 97 Room Air Laboratory Results Lab Results 06/26/22 06/27/22 06/27/22 Range/Units Unknown 05:29 05:29 WBC 16.70 H (4.8-10.8) K/ul RBC 4.20 (4.20-5.40) M/uL Hgb 12.5 (12.0-16.0) g/dl Hct 37.0 (37.0-47.0) % MCV 88.1 (80.0-100.0) fL MCH 29.8 (25.0-34.0) pg MCHC 33.8 (32.0-36.0) g/dL RDW Std Deviation 42.5 (36.4-46.3) fL RDW Coeff of Declan 13.2 (11.5-14.5) % Plt Count 231 (130-400) K/uL MPV 11.5 (9.4-12.4) fL Sodium 141 (136-145) mmol/L Potassium 3.7 (3.5-5.1) mmol/L Chloride 107 (98-107) mmol/L Carbon Dioxide 26 (21-32) mmol/L Anion Gap 8 (3-11) BUN 12 (6-23) mg/dl Creatinine 0.64 (0.6-1.2) mg/dl Est Cr Clr Drug Dosing 78.4 ml/min Est GFR ( Amer) 106.3 ml/min Est GFR (Non-Af Amer) 91.7 ml/min BUN/Creatinine Ratio 18.8 (10-20) Glucose 140 H (70-99(Fasting)) mg/dl Calcium 8.7 (8.6-10.3) mg/dl SARS-CoV-2, RNA, NAAT NEGATIVE (NEGATIVE)
[2022-06-27] MEDS: ASPIRIN 81 MG ECTAB PO SCH (08:43)
[2022-06-27] MEDS: DOCUSATE SODIUM 100 MG CAP PO SCH (08:43)
[2022-06-27] MEDS ORDERED: CALCIUM CARBONATE 1250MG TAB PO SCH (09:00)
[2022-06-27] MEDS ORDERED: CHOLECALCIFEROL 1,000 UNITS 25 MCG TAB PO SCH (09:00)
[2022-06-27] MEDS ORDERED: amLODIPine BESYLATE 5 MG TAB PO SCH (09:00)
[2022-06-27] MEDS ORDERED: MULTIVITAMIN TAB PO SCH (09:00)
[2022-06-27] MEDS ORDERED: CeleBREX 200 MG CAP PO SCH (21:00)
--- NOTE | 2022-06-28 12:42 | Discharge Summary ---
Date of Service date of discharge: June 27, 2022 date of admission: 06/26/22 Admission HPI Per Admitting Provider Mirna is a pleasant 66-year-old female who presented for preop evaluation prior to left total knee replacement. She has been having pain in his knee for many years now which is gradually worsened and is now affecting her daily activities including walking standing using stairs. She tried oral anti- inflammatories and Tylenol without relief. She had previous viscosup plementation injections as well with minimal relief. Rates her current pain as a 5 out of 10. She has complaints of pain stiffness and weakness in her left knee. This point time is failed conservative measures and would like to proceed with a left total knee replacement Principal Diagnosis left knee osteoarthritis Discharge Exam Musculoskeletal left knee: NVDI, calf SNT, negative briana sign. DP palpable, able to wiggle toes/ankle movement without difficulty. PAUL dressing clean dry and intact. Discharge Data Allergies Allergy/AdvReac Type Severity Reaction Status Date / Time No Known Allergies Allergy Verified 06/26/22 09:10 Procedures Performed Operation Date: 06/26/22 11:10 Actual Procedures p Left Total Knee Arthroplasty(Left) - Sonu Mora DO Ordered Studies 06/26/22 05:00 US - OR guided needle placemen Routine 06/26/22 09:22 US - OR guided needle placemen Stat Hospital Course (1) Arthritis of knee, left: Postop day #1 left total knee arthroplasty -PT/OT -AM labs: Hemoglobin at 12.5. Leukocytosis with a white count of 16 likely reactive due to surgical stress, perioperative steroids. Patient is asymptomatic. -Pain management as written -DVT prophylaxis: SCDs, teds, aspirin 81 mg twice daily -Discharge planning: Plan on discharge home with home health. Plan on discharge today as long as therapy goes well. Total Time Total Time Spent Total Time Spent (In Minutes): 20 Discharge Plan Discharge Items Patient Disposition: Home - Home Health Services Reason For Visit: Left Knee Osteoarthritis Discharge Diagnosis: LEFT TOTAL KNEE REPLACEMENT Activity: Per Instructions section Weightbearing Comment: WBAT WITH WALKER Non-emergency contact: Surgeon Call non-emergency contact if: you have any medication questions, your temperature is above 101, your wound has increased redness, your wound has increased drainage and your wound pain has increased Follow-up/Referrals: Gogo Krishna PA-C [Primary Care Provider] - Diet: Regular Addtl Attending Provider Instructions: ACTIVITY RECOMMENDATIONS: SELF CARE INSTRUCTIONS AFTER TOTAL KNEE REPLACEMENT A. You may need to continue a physical therapy program after discharge from the hospital. There are several options available to you. Your doctor will assist you in selecting the best one for you. 1. An out-patient facility 2 to 3 times a week for therapy or home therapy. 2. Continue working on all exercises taught to you in the hospital. Your goals should be to increase bending of your knee to 90 degrees and beyond and to fully straighten your knee. B. You may progress at your own pace from walking with a walker or crutches to a cane; then to no assistive devices. C. Make walking a part of your daily routine. Be up as much as comfortable with rest periods throughout the day. Rest with leg elevation is very important. Use the ice wrap frequently for the first 3-4 weeks. D. There are no restrictions on activities. You may ride in a car, shop, participate in retail cosmetics sales beauty advisor and all social activities. E. Wear the long elastic stockings (ARPIT hose) 20 hours a day for 2 weeks after surgery. They can be removed several times a day for laundering and for a bath. F. You may shower, no tub baths until cleared by your doctor. SPECIAL CARE INSTRUCTIONS: VERY IMPORTANT TO READ AND REVIEW A. There are a few signs you need to watch for after you are home. Call [facility] if you notice any of the followin. Increased severe knee pain. Some pain is expected especially when you exercise. 2. Increased swelling in your leg or knee; pain or swelling of the calf muscle in either lower leg. 3. Any fluid drainage from the incision. 4. Shortness of breath or chest pain. B. Please call [facility] at if you have any concerns or questions about your operation or recovery. The doctor or his nurse will return your call promptly. C. You must take antibiotics before dental work, bladder, bowel or other surgery. Your doctor will provide you with a permanent care to carry describing this precaution. IMPORTANT: * REMEMBER TO TAKE ASPIRIN, 81 MG, TWICE DAILY FOR 4 WEEKS UNLESS OTHERWISE DIRECTED. THIS IS YOUR BLOOD THINNER. * HIGH RISK PATIENTS MAY BE PRESCRIBED A STRONGER BLOOD THINNER. THIS WILL BE PROVIDED AT DISCHARGE. * CALL IF INCREASED PAIN, REDNESS, DRAINAGE OR FEVER GREATER THAT 101. * WEAR ARPIT HOSE 20 HOURS PER DAY FOR 2 WEEKS. DRESSING INSTRUCTIONS * PAUL Dressing- This is a large suction dressing covering your incision. This will help pull any excess drainage from the wound and allow your incision to heal properly. You may shower with this if you can keep the unit outside of the shower. If any bleeding or leakage is noted please call your doctor's office. This will remain on your incision for 7 days and then should be removed. This can be done yourself or by the home nursing staff if applicable. The entire unit is disposable once removed. Once removed, keep incision clean a nd dry. If redness or drainage is noted, please call your surgeon. ONCE PAUL IS REMOVED, FOLLOW THESE INSTRUCTIONS: DERMABOND Prineo- This is a mesh tape dressing that is covered with glue. It sh ould remain in place until the incision is properly healed, usually 10-14 days. This dressing is designed to naturally slough off. You may trim the excess mesh tape as it peels off. Incision may be briefly wet in a shower. Dry immediately by blotting with a clean, dry towel. Do not bath or swim until instructed by your doctor. Do not scratch, rub, or pick at the dressing. Do not apply any topical ointments or lotions until dressing is completely removed and/or instructed by your doctor. There may be a small piece of suture material at one end of your incision. Do not pull or trim this. If it is bothersome or catching on clothing, you may cover it with a band-aid. IF INCISION IS LEAKING THROUGH DRESSING, CALL THE OFFICE . FOLLOW UP VISIT: If appointment is not already scheduled: Please call [facility] to make a follow-up appointment for 2 weeks after your surgery at . Stand-Alone Forms: My [facility] [employer] Medications and DC Order Prescriptions: New acetaminophen [Tylenol Extra Strength] 500 mg Tablet 1,000 mg PO Q8 Qty: 60 0RF aspirin 81 mg Tablet,Delayed Release (Dr/Ec) 81 mg PO BID Qty: 60 0RF celecoxib [Celebrex] 200 mg Capsule 200 mg PO BID Qty: 60 0RF oxycodone 5 mg Tablet 5 - 10 mg PO .Q4h-6h MDD 6 PRN (Reason: pain) Qty: 30 0RF Rx Instructions: Ongoing therapy, Dr. Mora supervising cefadroxil 500 mg capsule 500 mg PO BID Qty: 28 0RF Continued amlodipine 5 mg Tablet 5 mg PO QAM calcium carbonate [Calcium 600] 600 mg calcium (1,500 mg) Tablet 600 mg PO QAM omeprazole 20 mg Capsule,Delayed Release(Dr/Ec) 20 mg PO QAM rosuvastatin 10 mg Tablet 10 mg PO HS cholecalciferol (vitamin D3) [Vitamin D3] 50 mcg (2,000 unit) Tablet 50 mcg PO QAM Krames/Other Patient Handouts: Salicylate (Blood), Oxycodone Oral Capsule, Cefadroxil Oral Capsule, Acetaminophen Oral Tablet, Celecoxib Oral Capsule, Understanding Deep Vein Thrombosis, Treating Constipation, Total Knee Replacement, Knee Replace Control Swelling, Walker Use Dc, Preventing Falls in the Home Admission Data Admit Date/Time: 06/26/22 11:51 Attending Provider: Sonu Mora Admit Provider: Sonu Mora Primary Care Provider: Gogo Krishna Other Interventions: Discharge Summary Assessment (RN) Last Done: 06/27/22 11:45
== END 2022-06-27 13:12 | disposition home health service (06) ==
LOC: ASU 08:41 → 3E 08:41